=== PATIENT | male | born 1975 | race Caucasian/White ===

== ENCOUNTER 2018-05-28 17:32 | Emergency (ER) | payer OTHER ==
[2018-05-28 17:48] VITALS: BP 126/79; PULSE 63; TEMP 98.2; BMI 30.2
[2018-05-28 19:03] LABS: BASO % 1.2 % (0-2.0); EOS % 2.9 % (0-4.5); HEMATOCRIT 40.9 % (35.4-49); HEMOGLOBIN 14.4 GM/dL (11.7-16.9); MCH 30.8 pg (25.7-33.7); MCHC 35.2 g/dl (32.0-35.9); MEAN CELL VOLUME 87.3 fl (80-96); MEAN PLT VOLUME 8.2 fl (7.5-11.1); MONO % 5.6 % (3.8-10.2); NEUT % 53.3 % (42.8-82.8); PLATELET COUNT 206 K/MM3 (134-434); RBC 4.68 M/mm3 (4.00-5.60); RDW 13.2 % (11.9-15.9); WHITE BLOOD COUNT 5.7 K/mm3 (4.0-10.0)
--- NOTE | 2018-05-28 19:26 | PDOC ---
History of Present Illness - General History Source: Patient Exam Limitations: No Limitations - History of Present Illness Initial Comments: 05/28/18 19:32 43 year old male with no significant past medical history who presents to the ED with complaints of bright red blood per rectum that began 1 hour prior to arrival. Patient states he noticed the blood upon wiping. Denies experiencing this in the past. Denies any associated nausea, vomiting, fevers, or chills. He reports experiencing intermittent diarrhea and left lower quadrant pain for the past few months but has not seen a doctor for this. also reports patient has been drinking more frequently, having about 6 beers a day. Denies any recent travel, sick contacts, chest pain, SOB, or urinary complaints. PCP: Dr. El Hernandez <Barbara Longo - Last Filed: 05/28/18 19:32> <Rowena Gomez - Last Filed: 05/28/18 19:45> - General Chief Complaint: Rectal Bleed Stated Complaint: BLOOD IN STOOL Time Seen by Provider: 05/28/18 18:19 Past History <Barbara Longo - Last Filed: 05/28/18 19:32> - Past Medical History COPD: No - Suicide/Smoking/Psychosocial Hx Smoking History: Current every day smoker Information on smoking cessation initiated: No Hx Alcohol Use: Yes <Rowena Gomez - Last Filed: 05/28/18 19:45> - Past Medical History Allergies/Adverse Reactions: Allergies Allergy/AdvReac Type Severity Reaction Status Date / Time No Known Allergies Allergy Verified 05/28/18 17:48 Home Medications: Ambulatory Orders NK [No Known Home Medication] 05/28/18 Review of Systems - Review of Systems Able to Perform ROS?: Yes Comments:: 05/28/18 19:32 CONSTITUTIONAL: Absent: fever, chills, diaphoresis, generalized weakness, malaise, loss of appetite HEENT: Absent: rhinorrhea, nasal congestion, throat pain, throat swelling, difficulty swallowing, mouth swelling, ear pain, eye pain, visual Changes CARDIOVASCULAR: Absent: chest pain, syncope, palpitations, irregular heart rate, lightheadedness , peripheral edema RESPIRATORY: Absent: cough, shortness of breath, dyspnea with exertion, orthopnea, wheezing, stridor, hemoptysis GASTROINTESTINAL:(+) blood per rectum, abdominal pain, diarrhea bsent: abdominal distension, nausea, vomiting, constipation GENITOURINARY: Absent: dysuria, frequency, urgency, hesitancy, hematuria, flank pain, genital pain MUSCULOSKELETAL: Absent: myalgia, arthralgia, joint swelling SKIN: Absent: rash, itching, pallor HEMATOLOGIC/IMMUNOLOGIC: Absent: easy bleeding, easy bruising, lymphadenopathy, frequent infections ENDOCRINE: Absent: unexplained weight gain, unexplained weight loss, heat intolerance, cold intolerance NEUROLOGIC: Absent: headache, focal weakness or paresthesias, dizziness, unsteady gait, seizure, mental status changes, bladder or bowel incontinence PSYCHIATRIC: Absent: anxiety, depression, suicidal or homicidal ideation, hallucinations. All Other Systems: Reviewed and Negative <Barbara Longo - Last Filed: 05/28/18 19:32> *Physical Exam - Vital Signs Last Vital Signs Temp Pulse Resp BP Pulse Ox 98.2 F 63 18 126/79 99 05/28/18 17:44 05/28/18 17:44 05/28/18 17:44 05/28/18 17:44 05/28/18 17:44 - Physical Exam Comments: 05/28/18 19:34 GENERAL: Well developed, well nourished. Awake and alert. No acute distress. CARDIOVASCULAR: Regular rate and rhythm. No murmurs, rubs, or gallops. Distal pulses are 2+ and symmetric. PULMONARY: No evidence of respiratory distress. Lungs clear to auscultation bilaterally. No wheezing, rales or rhonchi. ABDOMINAL: Soft. Non-tender. Non-distended. No rebound or guarding. No organomegaly. Normoactive bowel sounds. RECTAL: No blood present in vault. No external hemorrhoids. EXTREMITIES: No cyanosis. No clubbing. No edema. No calf tenderness. SKIN: Warm and dry. Normal capillary refill. No rashes. No jaundice. NEUROLOGICAL: Alert, awake, appropriate. Cranial nerves 2-12 intact. <Barbara Longo - Last Filed: 05/28/18 19:32> - Vital Signs Last Vital Signs Temp Pulse Resp BP Pulse Ox 98.2 F 63 18 126/79 99 05/28/18 17:44 05/28/18 17:44 05/28/18 17:44 05/28/18 17:44 05/28/18 17:44 <Rowena Gomez - Last Filed: 05/28/18 19:45> Moderate Sedation - Procedure Monitoring Vital Signs: Procedure Monitoring Vital Signs Temperature 98.2 F 05/28/18 17:44 Pulse Rate 63 05/28/18 17:44 Respiratory Rate 18 05/28/18 17:44 Blood Pressure 126/79 05/28/18 17:44 O2 Sat by Pulse Oximetry (%) 99 05/28/18 17:44 <Barbara Longo - Last Filed: 05/28/18 19:32> - Procedure Monitoring Vital Signs: Procedure Monitoring Vital Signs Temperature 98.2 F 05/28/18 17:44 Pulse Rate 63 05/28/18 17:44 Respiratory Rate 18 05/28/18 17:44 Blood Pressure 126/79 05/28/18 17:44 O2 Sat by Pulse Oximetry (%) 99 05/28/18 17:44 <Rowena Gomez - Last Filed: 05/28/18 19:45> ED Treatment Course - LABORATORY CBC & Chemistry Diagram: 05/28/18 18:53 05/28/18 18:53 - ADDITIONAL ORDERS Additional order review: Laboratory Results 05/28/18 18:53 Sodium 140 Potassium 3.6 Chloride 108 H Carbon Dioxide 24 Anion Gap 8 BUN 9 Creatinine 0.8 Creat Clearance w eGFR 106.01 Random Glucose 88 Calcium 8.7 Total Bilirubin 0.3 AST 25 ALT 36 Alkaline Phosphatase 103 Total Protein 7.4 Albumin 3.9 05/28/18 18:53 RBC 4.68 MCV 87.3 MCHC 35.2 RDW 13.2 MPV 8.2 Neutrophils % 53.3 Lymphocytes % 37.0 Monocytes % 5.6 Eosinophils % 2.9 Basophils % 1.2 <Barbara Longo - Last Filed: 05/28/18 19:32> - LABORATORY CBC & Chemistry Diagram: 05/28/18 18:53 05/28/18 18:53 - ADDITIONAL ORDERS Additional order review: 05/28/18 18:53 RBC 4.68 MCV 87.3 MCHC 35.2 RDW 13.2 MPV 8.2 Neutrophils % 53.3 Lymphocytes % 37.0 Monocytes % 5.6 Eosinophils % 2.9 Basophils % 1.2 <Rowena Gomez - Last Filed: 05/28/18 19:45> Medical Decision Making - Medical Decision Making 05/28/18 19:41 Patient developed on the . He apparently wiped today. The first time he ever had bright red blood associated with a bowel movement. He does not like to see physicians and doesn't typically go to see his primary care doctor. No significant past medical history. His is concerned that he has been drinking 4-6 drinks of beer a daily and this is a new habit <Rowena Gomez - Last Filed: 05/28/18 19:45> *DC/Admit/Observation/Transfer - Attestations Scribe Attestion: 05/28/18 19:35 Documentation prepared by Barbara Longo, acting as medical clerical assistant for Rowena Gomez MD. <Barbara Longo - Last Filed: 05/28/18 19:32> <Rowena Gomez - Last Filed: 05/28/18 19:45> Diagnosis at time of Disposition: Blood in stool - Discharge Dispostion Disposition: HOME Condition at time of disposition: Stable - Referrals Referrals: El Hernandez [Primary Care Provider] - Tony Morales DO [Staff Physician] - - Patient Instructions Printed Discharge Instructions: DI for Rectal Bleeding Additional Instructions: Please followup with the gastroentologist for further evaluation for the blood in your stool. It is important to followup. Please limit alcohol intake to avoid future liver disease. Do not drink if you drink. - Post Discharge Activity
[2018-05-28 19:31] LABS: ALBUMIN 3.9 g/dl (3.4-5.0); ALK PHOS 103 U/L (45-117); ANION GAP 8 MMOL/L (8-16); BILIRUBIN,TOTAL 0.3 mg/dL (0.2-1); BLOOD UREA NITROGEN 9 mg/dL (7-18); CALCIUM 8.7 mg/dL (8.5-10.1); CHLORIDE 108 mmol/L (98-107); CO2 24 mmol/L (21-32); CREATININE 0.8 mg/dL (0.55-1.3); GLUCOSE,RANDOM 88 mg/dL (74-106); POTASSIUM 3.6 mmol/L (3.5-5.1); SGOT/AST 25 U/L (15-37); SGPT/ALT 36 U/L (13-61); SODIUM 140 mmol/L (136-145); TOT PROT 7.4 g/dl (6.4-8.2)
== END 2018-05-28 20:11 | disposition home or self-care (01) ==
LOC: JER 17:32
DX: K92.1 Melena (principal)
CPT/HCPCS: 36415; 80053; 82272; 85025; 99282-25